=== PATIENT | female | born 1990 | race Caucasian/White ===

== ENCOUNTER 2020-08-18 14:40 | Emergency (ER) | payer OTHER ==
[~2020-08-18] VITALS: Ht 167.6 cm; Wt 59.5 kg
[2020-08-18 17:48] VITALS: BP 121/67
== END 2020-08-18 18:03 | disposition home or self-care (01) ==
LOC: EMS 14:49
DX: S90.561A Insect bite (nonvenomous), right ankle, initial encounter (principal); S90.562A Insect bite (nonvenomous), left ankle, initial encounter; R05 Cough; W57.XXXA Bitten or stung by nonvenomous insect and other nonvenomous arthropods, initial encounter; Y93.89 Activity, other specified; Y92.89 Other specified places as the place of occurrence of the external cause; Y99.8 Other external cause status
CPT/HCPCS: 71046; 99283

== ENCOUNTER 2021-07-09 15:18 | Inpatient (IN) | payer OTHER ==
[~2021-07-09] VITALS: Ht 162.6 cm; Wt 57.5 kg
[2021-07-09] MEDS ORDERED: NALOXONE HCL 1 MG/ML 2 ML SYRINGE IVP ONE (16:15)
[2021-07-09] MEDS ORDERED: ONDANSETRON HCL 4 MG/2 ML VIAL ONE (16:25)
[2021-07-09] MEDS ORDERED: SODIUM CHLORIDE 0.9% 1,000 ML ONE (16:25)
[2021-07-09] MEDS ORDERED: SODIUM CHLORIDE 0.9% 1,000 ML IV ONE (16:30)
[2021-07-09] MEDS ORDERED: ONDANSETRON HCL 4 MG/2 ML VIAL IVP ONE (16:30)
[2021-07-09 19:05] LABS: BASOPHILS % (AUTO) 1.3 % (0.0-2.0); EOSINOPHILS % (AUTO) 0.1 % (1.0-6.0); HEMATOCRIT 39.8 % (36-46); HEMOGLOBIN 13.4 g/dL (12.0-16.0); LYMPHOCYTES # (AUTO) 0.6 K/uL (1.0-4.8); LYMPHOCYTES % (AUTO) 14.1 % (22.0-44.0); MEAN CORPUSCULAR HEMOGLOBIN 29.8 pg (26.0-34.0); MEAN CORPUSCULAR HGB CONC 33.7 G/dL (31.0-37.0); MEAN CORPUSCULAR VOLUME 89 fL (80-100); MONOCYTES # (AUTO) 0.2 K/uL (0.1-1.0); MONOCYTES % (AUTO) 4.6 % (2.0-9.0); NEUTROPHILS # (AUTO) 3.7 K/uL (1.8-7.7); NEUTROPHILS % (AUTO) 79.9 % (40.0-70.0); PLATELET COUNT (AUTO) 368 K/uL (150-450); RED CELL DISTRIBUTION WIDTH 15.2 % (11.5-14.5)
[2021-07-09 19:36] LABS: ANION GAP 10 mmol/L (8-16); CALCIUM, TOTAL 9.1 mg/dL (8.8-10.5); CARBON DIOXIDE 27 mmol/L (22-29); CHLORIDE 101 mmol/L (98-107); CREATININE 0.68 mg/dL (0.60-1.30); GLOMERULAR FILTR. RATE CALC > 60 mL/min (>60); GLUCOSE,RANDOM 112 mg/dL (70-110); POTASSIUM 4.3 mmol/L (3.5-5.1); SODIUM SERUM 138 mmol/L (136-145); UREA NITROGEN, BLOOD 10 mg/dL (7-18)
[2021-07-09 19:42] LABS: ALANINE AMINOTRANSFERASE 19 U/L (12-78); ALBUMIN 3.9 g/dL (3.4-5.0); ALKALINE PHOSPHATASE 47 U/L (46-116); ASPARTATE AMINOTRANSFERASE 18 U/L (15-37); BILIRUBIN,TOTAL 0.3 mg/dL (0.1-1.0); TOTAL PROTEIN, SERUM 8.5 g/dL (6.4-8.2)
[2021-07-09 23:41] VITALS: BP 129/86
[2021-07-10 02:49] LABS: AMPHET/METH SCREEN,URINE POSITIVE (NEGATIVE); BARBITURATE SCREEN, URINE NEGATIVE (NEGATIVE); BENZODIAZEPINES SCREEN,URINE NEGATIVE (NEGATIVE); CANNABINOID SCREEN,URINE POSITIVE (NEGATIVE); COCAINE SCREEN,URINE NEGATIVE (NEGATIVE); METHADONE SCREEN, URINE NEGATIVE (NEGATIVE); OPIATE SCREEN,URINE POSITIVE (NEGATIVE); PHENCYCLIDINE SCREEN,URINE NEGATIVE (NEGATIVE)
[2021-07-10 04:31] VITALS: BP 119/82
[2021-07-10 08:38] VITALS: BP 125/79
[2021-07-10 13:18] VITALS: BP 141/99
[2021-07-10] MEDS ORDERED: BISACODYL 10 MG RECTAL RECTAL SUPPOSITORY PR PRN (15:45)
[2021-07-10] MEDS ORDERED: LOPERAMIDE HCL 2 MG/15 ML SUSPENSION UDCUP PO PRN (15:45)
[2021-07-10] MEDS ORDERED: HydrOXYzine PAMOATE 50 MG CAPSULE PO PRN ×2 (15:45)
[2021-07-10] MEDS ORDERED: MAG HYDROX/AL HYDROX/SIMETH ES 30 ML SUSPENSION UDCUP PO PRN ×2 (15:45)
[2021-07-10] MEDS ORDERED: CloNIDine HCL 0.1 MG TABLET PO PRN (15:45)
[2021-07-10] MEDS ORDERED: ALBUTEROL SULFATE 2.5 MG/0.5 ML NEB SOLUTION NEB PRN (15:45)
[2021-07-10] MEDS ORDERED: ZOLPIDEM TARTRATE 5 MG TABLET PO PRN (15:45)
[2021-07-10] MEDS ORDERED: MORPHINE SULFATE 2 MG/ML SYRINGE IVP PRN (15:45)
[2021-07-10] MEDS ORDERED: MAGNESIUM HYDROXIDE SUSPENSION 30 ML UDCUP PO PRN (15:45)
[2021-07-10] MEDS ORDERED: TraZODone HCL 50 MG TABLET PO PRN (15:45)
[2021-07-10] MEDS ORDERED: BACLOFEN 10 MG TABLET PO PRN (15:45)
[2021-07-10] MEDS ORDERED: DICYCLOMINE HCL 10 MG CAPSULE PO PRN (15:45)
[2021-07-10] MEDS ORDERED: IBUPROFEN 600 MG TABLET PO PRN ×2 (15:45)
[2021-07-10] MEDS ORDERED: IPRATROPIUM BROMIDE 0.5 MG/2.5 ML NEB SOLUTION NEB PRN (15:45)
[2021-07-10] MEDS ORDERED: ACETAMINOPHEN 325 MG TABLET PO PRN ×2 (15:45)
[2021-07-10] MEDS ORDERED: PROMETHAZINE HCL 25 MG TABLET PO PRN (15:45)
[2021-07-10] MEDS: HEPARIN SODIUM,PORCINE 5,000 UNITS/ML VIAL SQ SCH ×2 (16:22→23:44)
[2021-07-10] MEDS: SODIUM CHLORIDE 0.45% 1,000 ML IV SCH (16:22)
[2021-07-10] MEDS: CloNIDine HCL 0.1 MG TABLET PO SCH ×2 (16:23→21:59)
[2021-07-10 17:28] VITALS: BP 110/67
[2021-07-10 19:34] VITALS: BP 129/79
[2021-07-10] MEDS: LORazepam 1 MG TABLET PO PRN (19:43)
[2021-07-10] MEDS: HYDROCODONE/ACETAMINOPHEN 5-325 MG TABLET PO PRN ×2 (19:43→23:44)
[2021-07-10] MEDS: DOCUSATE SODIUM 100 MG CAPSULE PO SCH (21:59)
[2021-07-10 23:31] VITALS: BP 126/74
[2021-07-11] VITALS (7 sets, daily range): BP systolic 121–146; BP diastolic 64–112
[2021-07-11] MEDS: LORazepam 1 MG TABLET PO PRN ×2 (02:05→19:54)
[2021-07-11] MEDS: ONDANSETRON HCL 4 MG/2 ML VIAL IVP PRN ×2 (03:14→18:24)
[2021-07-11] MEDS: SODIUM CHLORIDE 0.45% 1,000 ML IV SCH ×2 (03:23→18:28)
[2021-07-11] MEDS: HYDROCODONE/ACETAMINOPHEN 5-325 MG TABLET PO PRN (03:48)
[2021-07-11] MEDS: CloNIDine HCL 0.1 MG TABLET PO SCH ×4 (06:32→19:46)
[2021-07-11] MEDS: DOCUSATE SODIUM 100 MG CAPSULE PO SCH ×2 (08:45→22:22)
[2021-07-11] MEDS: PANTOPRAZOLE SODIUM 40 MG/VIAL IVP SCH (08:46)
[2021-07-11] MEDS: HEPARIN SODIUM,PORCINE 5,000 UNITS/ML VIAL SQ SCH ×2 (08:46→15:28)
[2021-07-12] MEDS: HEPARIN SODIUM,PORCINE 5,000 UNITS/ML VIAL SQ SCH ×2 (00:02→08:14)
[2021-07-12 03:53] VITALS: BP 128/63
[2021-07-12] MEDS: HYDROCODONE/ACETAMINOPHEN 5-325 MG TABLET PO PRN (04:32)
[2021-07-12] MEDS: SODIUM CHLORIDE 0.45% 1,000 ML IV SCH (05:36)
[2021-07-12] MEDS: CloNIDine HCL 0.1 MG TABLET PO SCH ×2 (05:39→12:00)
[2021-07-12 07:31] VITALS: BP 111/64
[2021-07-12 08:00] VITALS: BP 111/64
[2021-07-12] MEDS: DOCUSATE SODIUM 100 MG CAPSULE PO SCH (08:14)
[2021-07-12] MEDS: PANTOPRAZOLE SODIUM 40 MG/VIAL IVP SCH (08:15)
[2021-07-12 10:35] VITALS: BP 116/62
[2021-07-12] MEDS ORDERED: ONDA4TAB96 PO (12:24)
[2021-07-12] MEDS ORDERED: ACET-3207 PO (12:36)
[2021-07-12 12:42] LABS: BASOPHILS % (AUTO) 0.8 % (0.0-2.0); EOSINOPHILS % (AUTO) 0.2 % (1.0-6.0); HEMATOCRIT 39.1 % (36-46); HEMOGLOBIN 13.1 g/dL (12.0-16.0); LYMPHOCYTES # (AUTO) 1.7 K/uL (1.0-4.8); LYMPHOCYTES % (AUTO) 26.1 % (22.0-44.0); MEAN CORPUSCULAR HEMOGLOBIN 29.7 pg (26.0-34.0); MEAN CORPUSCULAR HGB CONC 33.6 G/dL (31.0-37.0); MEAN CORPUSCULAR VOLUME 88 fL (80-100); MONOCYTES # (AUTO) 0.4 K/uL (0.1-1.0); MONOCYTES % (AUTO) 6.7 % (2.0-9.0); NEUTROPHILS # (AUTO) 4.4 K/uL (1.8-7.7); NEUTROPHILS % (AUTO) 66.2 % (40.0-70.0); PLATELET COUNT (AUTO) 368 K/uL (150-450); RED BLOOD CELL COUNT(AUTO) 4.42 MIL/uL (4.00-5.20); RED CELL DISTRIBUTION WIDTH 15.1 % (11.5-14.5)
[2021-07-12 12:52] LABS: ANION GAP 6 mmol/L (8-16); CALCIUM, TOTAL 8.4 mg/dL (8.8-10.5); CARBON DIOXIDE 29 mmol/L (22-29); CHLORIDE 104 mmol/L (98-107); GLOMERULAR FILTR. RATE CALC > 60 mL/min (>60); GLUCOSE,RANDOM 119 mg/dL (70-110); POTASSIUM 3.1 mmol/L (3.5-5.1); SODIUM SERUM 139 mmol/L (136-145); UREA NITROGEN, BLOOD 5 mg/dL (7-18)
[2021-07-12 12:58] LABS: ALANINE AMINOTRANSFERASE 16 U/L (12-78); ALBUMIN 3.4 g/dL (3.4-5.0); ALKALINE PHOSPHATASE 55 U/L (46-116); ASPARTATE AMINOTRANSFERASE 9 U/L (15-37); BILIRUBIN,TOTAL 0.3 mg/dL (0.1-1.0); TOTAL PROTEIN, SERUM 7.3 g/dL (6.4-8.2)
[2021-07-13] MEDS ORDERED: HYDR50CA7 PO (03:07)
[2021-07-13] MEDS ORDERED: TRAZ-257 PO (16:21)
[2021-07-13] MEDS ORDERED: HYDR-4808 PO (16:21)
== END 2021-07-12 15:50 | disposition home or self-care (01) | DRG 918 ==
LOC: EMS 15:23 → 5S 22:45
PROVIDERS: ADMIT Hospitalist; ATTEND Hospitalist
DX: T40.411A Poisoning by fentanyl or fentanyl analogs, accidental (unintentional), initial encounter (principal); F11.23 Opioid dependence with withdrawal; F15.11 Other stimulant abuse, in remission; Y92.89 Other specified places as the place of occurrence of the external cause
CPT/HCPCS: 70450; 72125; 80053; 84703; 85025; 99285; C9113; J1644; J2310; J2405; J7030

== ENCOUNTER 2021-07-13 15:36 | Inpatient (IN) | payer OTHER ==
[~2021-07-13] VITALS: Ht 152.4 cm; Wt 55.2 kg
[~2021-07-13 15:36] MED LIST: ACET-3207 PO; HYDR50CA7 PO; ONDA4TAB96 PO
[2021-07-13 16:12] LABS: BASOPHILS % (AUTO) 1.2 % (0.0-2.0); EOSINOPHILS % (AUTO) 0.6 % (1.0-6.0); HEMATOCRIT 36.8 % (36-46); HEMOGLOBIN 12.5 g/dL (12.0-16.0); LYMPHOCYTES # (AUTO) 1.4 K/uL (1.0-4.8); LYMPHOCYTES % (AUTO) 21.8 % (22.0-44.0); MEAN CORPUSCULAR VOLUME 88 fL (80-100); MONOCYTES # (AUTO) 0.5 K/uL (0.1-1.0); MONOCYTES % (AUTO) 7.4 % (2.0-9.0); NEUTROPHILS # (AUTO) 4.5 K/uL (1.8-7.7); PLATELET COUNT (AUTO) 361 K/uL (150-450); RED BLOOD CELL COUNT(AUTO) 4.17 MIL/uL (4.00-5.20); RED CELL DISTRIBUTION WIDTH 14.9 % (11.5-14.5)
[2021-07-13] MEDS ORDERED: HYDR-4808 PO (16:21)
[2021-07-13] MEDS ORDERED: TRAZ-257 PO (16:21)
[2021-07-13 16:24] LABS: ANION GAP 6 mmol/L (8-16); CALCIUM, TOTAL 8.7 mg/dL (8.8-10.5); CARBON DIOXIDE 29 mmol/L (22-29); CHLORIDE 105 mmol/L (98-107); CREATININE 0.68 mg/dL (0.60-1.30); GLOMERULAR FILTR. RATE CALC > 60 mL/min (>60); GLUCOSE,RANDOM 102 mg/dL (70-110); POTASSIUM 3.9 mmol/L (3.5-5.1); SODIUM SERUM 140 mmol/L (136-145); UREA NITROGEN, BLOOD 9 mg/dL (7-18)
[2021-07-13 16:26] LABS: COVID AG,FIA SOURCE NASAL SWAB
[2021-07-13 16:37] LABS: ALANINE AMINOTRANSFERASE 16 U/L (12-78); ALBUMIN 3.5 g/dL (3.4-5.0); ALKALINE PHOSPHATASE 48 U/L (46-116); ASPARTATE AMINOTRANSFERASE 9 U/L (15-37); BILIRUBIN,TOTAL 0.3 mg/dL (0.1-1.0); HCG,QUANTITATIVE < 1 mIU/mL (0-6); TOTAL PROTEIN, SERUM 7.3 g/dL (6.4-8.2)
[2021-07-13] MEDS ORDERED: MAGNESIUM HYDROXIDE SUSPENSION 30 ML UDCUP PO PRN (17:45)
[2021-07-13 18:38] LABS: AMPHET/METH SCREEN,URINE NEGATIVE (NEGATIVE); BARBITURATE SCREEN, URINE NEGATIVE (NEGATIVE); BENZODIAZEPINES SCREEN,URINE NEGATIVE (NEGATIVE); CANNABINOID SCREEN,URINE NEGATIVE (NEGATIVE); COCAINE SCREEN,URINE NEGATIVE (NEGATIVE); METHADONE SCREEN, URINE NEGATIVE (NEGATIVE); OPIATE SCREEN,URINE NEGATIVE (NEGATIVE)
[2021-07-13 18:42] LABS: PHENCYCLIDINE SCREEN,URINE NEGATIVE (NEGATIVE)
[2021-07-13 20:31] VITALS: BP 114/77
[2021-07-13] MEDS ORDERED: PROCHLORPERAZINE MALEATE 5 MG TABLET PO ONE (20:45)
[2021-07-13] MEDS ORDERED: MELATONIN 3 MG TABLET PO ONE (20:45)
[2021-07-13] MEDS: ZOLPIDEM TARTRATE 5 MG TABLET PO PRN (22:37)
[2021-07-14] MEDS: RINGERS SOLUTION,LACTATED 1,000 ML IV SCH ×3 (00:13→20:21)
[2021-07-14] MEDS: METOCLOPRAMIDE HCL 5 MG/ML 2 ML VIAL IVP PRN (00:13)
[2021-07-14] MEDS ORDERED: LORazepam 2 MG/ML VIAL IVP ONE (02:45)
[2021-07-14] MEDS ORDERED: BISM262O28 PO (03:07)
[2021-07-14] MEDS ORDERED: CLON-441 PO (03:07)
[2021-07-14] MEDS ORDERED: PROM-163 PO (03:07)
[2021-07-14] MEDS ORDERED: IBUP-2071 PO (03:07)
[2021-07-14] MEDS ORDERED: LOPE-202 PO (03:07)
[2021-07-14] MEDS: FAMOTIDINE 20 MG TABLET PO SCH (09:06)
[2021-07-14] MEDS: ACETAMINOPHEN 325 MG TABLET PO PRN ×2 (09:07→20:21)
[2021-07-14 09:20] VITALS: BP 115/76
[2021-07-14] MEDS ORDERED: HydrOXYzine PAMOATE 25 MG CAPSULE PO SCH (11:15)
[2021-07-14] MEDS: RisperiDONE 1 MG TABLET PO SCH ×2 (13:16→20:23)
[2021-07-14 16:24] VITALS: BP 109/66
[2021-07-14] MEDS: HydrOXYzine PAMOATE 25 MG CAPSULE PO SCH ×2 (16:29→20:22)
[2021-07-14 20:16] VITALS: BP 130/86
[2021-07-14] MEDS: HydrOXYzine PAMOATE 50 MG CAPSULE PO SCH (20:21)
[2021-07-14] MEDS: ZOLPIDEM TARTRATE 5 MG TABLET PO PRN (20:21)
[2021-07-14] MEDS: TraZODone HCL 100 MG TABLET PO SCH (20:22)
[2021-07-14] MEDS: QUEtiapine FUMARATE 25 MG TABLET PO PRN (22:31)
[2021-07-15 04:56] VITALS: BP 130/82
[2021-07-15] MEDS: RINGERS SOLUTION,LACTATED 1,000 ML IV SCH (06:13)
[2021-07-15 08:10] VITALS: BP 133/80
[2021-07-15] MEDS: RisperiDONE 1 MG TABLET PO SCH ×2 (08:31→20:47)
[2021-07-15] MEDS: HydrOXYzine PAMOATE 25 MG CAPSULE PO SCH ×3 (08:31→20:47)
[2021-07-15] MEDS: FAMOTIDINE 20 MG TABLET PO SCH (08:31)
[2021-07-15] MEDS: QUEtiapine FUMARATE 25 MG TABLET PO PRN ×3 (08:54→17:19)
[2021-07-15] MEDS ORDERED: DiphenhydrAMINE HCL 50 MG/ML VIAL ONE (09:31)
[2021-07-15] MEDS ORDERED: HALOPERIDOL LACTATE 5 MG/ML VIAL ONE (09:31)
[2021-07-15] MEDS ORDERED: LORazepam 2 MG/ML VIAL ONE (09:32)
[2021-07-15] MEDS ORDERED: LORazepam 2 MG/ML VIAL IM ONE ×2 (09:45)
[2021-07-15] MEDS ORDERED: DiphenhydrAMINE HCL 50 MG/ML VIAL IM ONE (09:45)
[2021-07-15] MEDS ORDERED: HALOPERIDOL LACTATE 5 MG/ML VIAL IM ONE (09:45)
[2021-07-15 20:17] VITALS: BP 137/88
[2021-07-15] MEDS: TraZODone HCL 100 MG TABLET PO SCH (20:47)
[2021-07-15] MEDS: HydrOXYzine PAMOATE 50 MG CAPSULE PO SCH (20:47)
[2021-07-16 00:05] VITALS: BP 151/92
[2021-07-16] MEDS: ZOLPIDEM TARTRATE 5 MG TABLET PO PRN ×2 (00:07→22:22)
[2021-07-16] MEDS: QUEtiapine FUMARATE 25 MG TABLET PO PRN ×4 (00:08→22:23)
[2021-07-16 04:10] VITALS: BP 130/88
[2021-07-16 08:55] VITALS: BP 150/72
[2021-07-16] MEDS: HydrOXYzine PAMOATE 25 MG CAPSULE PO SCH ×3 (08:58→20:01)
[2021-07-16] MEDS: FAMOTIDINE 20 MG TABLET PO SCH (08:58)
[2021-07-16] MEDS: RisperiDONE 1 MG TABLET PO SCH ×2 (08:58→20:01)
[2021-07-16] MEDS: ACETAMINOPHEN 325 MG TABLET PO PRN (12:59)
[2021-07-16 18:00] VITALS: BP 135/83
[2021-07-16 19:43] VITALS: BP 129/85
[2021-07-16] MEDS: TraZODone HCL 100 MG TABLET PO SCH (20:01)
[2021-07-16] MEDS: HydrOXYzine PAMOATE 50 MG CAPSULE PO SCH (20:03)
[2021-07-16] MEDS ORDERED: LORazepam 1 MG TABLET PO ONE (23:15)
[2021-07-17] MEDS: FAMOTIDINE 20 MG TABLET PO SCH (08:00)
[2021-07-17] MEDS: RisperiDONE 1 MG TABLET PO SCH ×2 (08:00→19:38)
[2021-07-17] MEDS: HydrOXYzine PAMOATE 25 MG CAPSULE PO SCH ×3 (08:00→19:38)
[2021-07-17 08:01] VITALS: BP 133/79
[2021-07-17] MEDS: ACETAMINOPHEN 325 MG TABLET PO PRN ×2 (11:25→19:39)
[2021-07-17] MEDS: QUEtiapine FUMARATE 25 MG TABLET PO PRN ×3 (11:25→23:01)
[2021-07-17 16:03] VITALS: BP 123/79
[2021-07-17 19:30] VITALS: BP 116/77
[2021-07-17] MEDS: TraZODone HCL 100 MG TABLET PO SCH (19:38)
[2021-07-17] MEDS: ZOLPIDEM TARTRATE 5 MG TABLET PO PRN (19:38)
[2021-07-17] MEDS: HydrOXYzine PAMOATE 50 MG CAPSULE PO SCH (19:38)
[2021-07-17] MEDS ORDERED: DiphenhydrAMINE HCL 50 MG/ML VIAL IVP ONE (23:00)
[2021-07-18] MEDS: TraZODone HCL 100 MG TABLET PO PRN (01:51)
[2021-07-18] MEDS: QUEtiapine FUMARATE 25 MG TABLET PO PRN ×4 (04:04→21:27)
[2021-07-18] MEDS: ACETAMINOPHEN 325 MG TABLET PO PRN ×2 (04:05→10:27)
[2021-07-18 06:36] VITALS: BP 128/78
[2021-07-18] MEDS: RisperiDONE 1 MG TABLET PO SCH ×2 (08:11→20:06)
[2021-07-18] MEDS: FAMOTIDINE 20 MG TABLET PO SCH (08:11)
[2021-07-18] MEDS: HydrOXYzine PAMOATE 25 MG CAPSULE PO SCH ×3 (08:11→20:06)
[2021-07-18 08:30] VITALS: BP 109/73
[2021-07-18 16:00] VITALS: BP 135/84
[2021-07-18 19:20] VITALS: BP 117/74
[2021-07-18] MEDS: TraZODone HCL 100 MG TABLET PO SCH (20:05)
[2021-07-18] MEDS: HydrOXYzine PAMOATE 50 MG CAPSULE PO SCH (20:06)
[2021-07-18] MEDS: ZOLPIDEM TARTRATE 5 MG TABLET PO PRN (22:49)
[2021-07-18 22:52] VITALS: BP 111/81
[2021-07-19] MEDS: TraZODone HCL 100 MG TABLET PO PRN (00:27)
[2021-07-19] MEDS: QUEtiapine FUMARATE 25 MG TABLET PO PRN (02:37)
[2021-07-19 04:00] VITALS: BP 125/67
[2021-07-19] MEDS: METOCLOPRAMIDE HCL 5 MG/ML 2 ML VIAL IVP PRN (04:53)
[2021-07-19] MEDS: RisperiDONE 1 MG TABLET PO SCH (08:12)
[2021-07-19] MEDS: FAMOTIDINE 20 MG TABLET PO SCH (08:12)
[2021-07-19] MEDS: HydrOXYzine PAMOATE 25 MG CAPSULE PO SCH (08:12)
[2021-07-19 08:44] VITALS: BP 116/76
[2021-07-19] MEDS ORDERED: HYDR-4808 PO (11:01)
[2021-07-19] MEDS ORDERED: RISP1TAB48 PO (11:02)
== END 2021-07-19 12:22 | DRG 885 ==
LOC: EMS 15:39 → 6S 18:19
PROVIDERS: ADMIT Internal Medicine; ATTEND Internal Medicine
DX: F29 Unspecified psychosis not due to a substance or known physiological condition (principal); R45.851 Suicidal ideations; F19.10 Other psychoactive substance abuse, uncomplicated; Z20.822 Contact with and (suspected) exposure to COVID-19
CPT/HCPCS: 76770; 80053; 84702; 85025; 87081; 93005; 99285; G0480; J1200; J1630; J2060; J2765; J7120

== ENCOUNTER 2023-02-07 23:30 | Inpatient (IN) | payer MEDICAID, OTHER ==
[~2023-02-07] VITALS: Ht 160 cm; Wt 60.0 kg
[~2023-02-07 23:30] MED LIST changes: -ACET-3207 PO; +HYDR-4808 PO; -HYDR50CA7 PO; -ONDA4TAB96 PO; +RISP1TAB48 PO; +TRAZ-257 PO
[2023-02-08 01:28] LABS: BASOPHILS % (AUTO) 1.2 % (0.0-2.0); EOSINOPHILS % (AUTO) 3.3 % (1.0-6.0); HEMATOCRIT 39.6 % (36-46); HEMOGLOBIN 13.4 g/dL (12.0-16.0); LYMPHOCYTES % (AUTO) 27.4 % (22.0-44.0); MEAN CORPUSCULAR HGB CONC 33.9 G/dL (31.0-37.0); MEAN CORPUSCULAR VOLUME 94 fL (80-100); MONOCYTES # (AUTO) 0.5 K/uL (0.1-1.0); MONOCYTES % (AUTO) 6.8 % (2.0-9.0); NEUTROPHILS # (AUTO) 4.6 K/uL (1.8-7.7); NEUTROPHILS % (AUTO) 61.3 % (40.0-70.0); PLATELET COUNT (AUTO) 399 K/uL (150-450); RED BLOOD CELL COUNT(AUTO) 4.19 MIL/uL (4.00-5.20); RED CELL DISTRIBUTION WIDTH 14.1 % (11.5-14.5); WHITE BLOOD COUNT (AUTO) 7.4 K/uL (4.5-11.0)
[2023-02-08 01:43] LABS: ALCOHOL, BLOOD (SERUM) < 3 mg/dL (0-10)
[2023-02-08 01:45] LABS: ANION GAP 9 mmol/L (8-16); CALCIUM, TOTAL 9.5 mg/dL (8.8-10.5); CARBON DIOXIDE 27 mmol/L (22-29); CHLORIDE 100 mmol/L (98-107); CREATININE 0.82 mg/dL (0.60-1.30); GLOMERULAR FILTR. RATE CALC > 60 mL/min (>60); GLUCOSE,RANDOM 91 mg/dL (70-110); POTASSIUM 4.7 mmol/L (3.5-5.1); SODIUM SERUM 136 mmol/L (136-145); UREA NITROGEN, BLOOD 19 mg/dL (7-18)
[2023-02-08 01:51] LABS: ALANINE AMINOTRANSFERASE 25 U/L (12-78); ALBUMIN 3.8 g/dL (3.4-5.0); ALKALINE PHOSPHATASE 48 U/L (46-116); ASPARTATE AMINOTRANSFERASE 19 U/L (15-37); BILIRUBIN,TOTAL 0.2 mg/dL (0.1-1.0); TOTAL PROTEIN, SERUM 8.2 g/dL (6.4-8.2)
[2023-02-08] MEDS ORDERED: LORazepam 1 MG TABLET PO ONE (02:15)
[2023-02-08] MEDS ORDERED: NICOTINE 21 MG/24 HOUR PATCH TD ONE (02:15)
[2023-02-08] MEDS ORDERED: HALOPERIDOL 5 MG TABLET PO PRN (05:45)
[2023-02-08] MEDS ORDERED: ZOLPIDEM TARTRATE 10 MG TABLET PO PRN (05:45)
[2023-02-08 05:59] LABS: COVID AG,FIA SOURCE NASAL SWAB
[2023-02-08 06:18] LABS: SARS-COV2 (COVID) ANTIGEN,FIA Negative (Negative)
[2023-02-08] MEDS: LORazepam 2 MG TABLET PO PRN ×3 (09:37→21:31)
[2023-02-08] MEDS ORDERED: NALT50TA6 PO (09:47)
[2023-02-08] MEDS ORDERED: VENL-68 PO (09:47)
[2023-02-08] MEDS ORDERED: VENL-193 PO (09:47)
[2023-02-08] MEDS ORDERED: PROP10TA73 PO (09:47)
[2023-02-08] MEDS ORDERED: VENL225T PO (09:47)
[2023-02-08] MEDS ORDERED: GABA-1181 PO (09:47)
[2023-02-08 20:28] VITALS: BP 122/83; PULSE 86; RESP 18; TEMP 98.1; O2SAT 97
[2023-02-09] MEDS: LORazepam 2 MG TABLET PO PRN (05:57)
[2023-02-09 10:19] VITALS: BP 126/72; PULSE 78; RESP 16; TEMP 98.7; O2SAT 97
[2023-02-09] MEDS ORDERED: GuaiFENesin/D-METHORPHAN [SUGAR-FREE] 200-20MG/10 ML SYRUP UDCUP PO PRN (15:15)
[2023-02-09] MEDS ORDERED: IBUPROFEN 400 MG TABLET PO PRN (15:15)
[2023-02-09] MEDS ORDERED: ONDANSETRON HCL 4 MG TABLET PO PRN (15:15)
[2023-02-09] MEDS ORDERED: MAG HYDROX/ALUMINUM HYD/SIMETH ES 30 ML SUSPENSION UDCUP PO PRN (15:15)
[2023-02-09] MEDS ORDERED: ACETAMINOPHEN 325 MG TABLET PO PRN (15:15)
[2023-02-09] MEDS ORDERED: PETROLATUM,WHITE 28 GM JELLY TP PRN (15:15)
[2023-02-09] MEDS ORDERED: DOCUSATE SODIUM 100 MG CAPSULE PO PRN (15:15)
[2023-02-09] MEDS ORDERED: MAGNESIUM HYDROXIDE SUSPENSION 30 ML UDCUP PO PRN (15:15)
[2023-02-09] MEDS ORDERED: ALBUTEROL SULFATE HFA 90 MCG/PUFF 8 GM INHALER IH PRN (15:15)
[2023-02-09] MEDS ORDERED: CloNIDine HCL 0.1 MG TABLET PO PRN (15:15)
[2023-02-09] MEDS ORDERED: LOPERAMIDE HCL 2 MG CAPSULE PO PRN (15:15)
[2023-02-09] MEDS ORDERED: NICOTINE 14 MG/24 HOUR PATCH TD PRN (15:15)
== END 2023-02-09 15:40 | disposition home or self-care (01) | DRG 751 ==
LOC: EMS 23:30 → B2S 02-08 13:39
PROVIDERS: ADMIT Psychiatry & Neurology Child & Adolescent Psychiatry; ATTEND Psychiatry & Neurology Child & Adolescent Psychiatry
DX: F33.2 Major depressive disorder, recurrent severe without psychotic features (principal); I95.9 Hypotension, unspecified; F90.9 Attention-deficit hyperactivity disorder, unspecified type; G47.00 Insomnia, unspecified; Z20.822 Contact with and (suspected) exposure to COVID-19
CPT/HCPCS: 80053; 85025; 99285; G0480